=== PATIENT | male | born 1970 | race Caucasian/White ===

== ENCOUNTER 2024-03-05 18:50 | Emergency (ER) | payer OTHER ==
[~2024-03-05] VITALS: Ht 180.3 cm; Wt 98.9 kg
[2024-03-05 19:32] VITALS: BP_SYST 175; PULSE 94; RESP 20; TEMP 98.8; O2SAT 97
[2024-03-05] MEDS ORDERED: CEPH-548 PO (21:33)
[2024-03-05] MEDS ORDERED: SILV20CR13 TP (21:33)
[2024-03-05] MEDS: IBUPROFEN 800 MG TABLET PO ONE (21:51)
[2024-03-05] MEDS: HYDROcodone/ACETAMIN 10-325 MG TAB PO ONE (21:51)
[2024-03-05 22:00] VITALS: BP_SYST 146; PULSE 95; RESP 20; TEMP 98.8; O2SAT 97
== END 2024-03-05 21:55 | disposition home or self-care (01) ==
LOC: SED 18:50
DX: T21.12XA Burn of first degree of abdominal wall, initial encounter (principal); L97.528 Non-pressure chronic ulcer of other part of left foot with other specified severity; E11.9 Type 2 diabetes mellitus without complications; R03.0 Elevated blood-pressure reading, without diagnosis of hypertension; Z79.899 Other long term (current) drug therapy; X11.8XXA Contact with other hot tap-water, initial encounter; Y93.89 Activity, other specified; Y92.89 Other specified places as the place of occurrence of the external cause; Y99.8 Other external cause status
CPT/HCPCS: 99283